=== PATIENT | female | born 1990 ===

== ENCOUNTER 2021-05-20 21:03 | Inpatient (IN) ==
[2021-05-20] MEDS ORDERED: 0.9 % Sodium Chloride 1,000 ML IVC ONE (21:34)
[2021-05-20 22:41] LABS: Amphetamine Screen,Urine Negative ng/mL (Cutoff=1000); Barbiturate Screen,Urine Negative ng/mL (Cutoff=200); Benzodiazepines Screen,Urine Negative ng/mL (Cutoff=200); Cannabinoid Screen,Urine Positive ng/mL (Cutoff = 50); Cocaine Screen,Urine Positive ng/mL (Cutoff= 300); Opiate Screen,Urine Negative ng/mL (Cutoff=300); Phencyclidine Screen,Urine Negative ng/mL (Cutoff=25)
[2021-05-21] MEDS ORDERED: Naloxone 0.4 MG/ML INJ IVP PRN (00:05)
[2021-05-21] MEDS: *HR* Heparin 5,000 UNIT/ML VIAL SQ SCH ×2 (06:07→16:22)
[2021-05-21 06:44] LABS: Hematocrit 38.2 % (35.3-44.9); Hemoglobin 12.2 g/dL (11.5-15.4); Mean Corpuscular HGB Conc 31.9 g/dL (31.6-35.5); Mean Corpuscular Hemoglobin 26.9 pg (28.0-33.3); Mean Corpuscular Volume 84.3 fL (83.0-100.0); Mean Platelet Volume 11.7 fL (9.4-12.4); Platelet Count 237 K/mcL (140-400); Red Blood Count 4.53 M/mcL (3.82-4.97); Red Cell Distribution Width 12.7 % (11.5-14.5); White Blood Count 6.8 K/mcL (4.3-11.1)
[2021-05-21 07:06] LABS: BUN/Creatinine Ratio 18 (6-26); Blood Urea Nitrogen 14 mg/dL (6-20); Calcium 8.8 mg/dL (8.6-10.3); Carbon Dioxide 23 mEq/L (23-29); Chloride 109 mEq/L (98-107); Glucose 88 mg/dL (70-105); Osmolality,Calculated 288 (280-300); Potassium 3.5 mEq/L (3.5-5.1); Sodium 139 mEq/L (136-145); eGFR For African Americans > 60 (> 60); eGFR For Non-African Americans > 60 (> 60)
[2021-05-21] MEDS: Ondansetron 4 MG/2 ML VIAL IVP PRN ×2 (08:57→16:52)
[2021-05-21] MEDS: *HR* LORazepam 2 MG/ML VIAL IVP PRN ×2 (16:24→21:16)
[2021-05-22] MEDS: *HR* LORazepam 2 MG/ML VIAL IVP PRN (02:52)
[2021-05-22] MEDS: Ondansetron 4 MG/2 ML VIAL IVP PRN ×2 (02:53→08:47)
[2021-05-22] MEDS ORDERED: Acetaminophen 325 MG TABLET PO PRN (03:03)
[2021-05-22 03:16] LABS: Candida DNA Not Detected (Not Detect); Gardnerella DNA DETECTED (Not Detect); Trichomonas DNA DETECTED (Not Detect)
[2021-05-22] MEDS: *HR* Heparin 5,000 UNIT/ML VIAL SQ SCH ×2 (05:33→18:55)
[2021-05-22] MEDS ORDERED: Azithromycin 250 MG TABLET PO ONE (06:38)
[2021-05-22] MEDS ORDERED: cefTRIAXone 1,000 MG in Water for inj. (sterile) 10 ML IVP ONE ×3 (06:38→15:55)
[2021-05-22] MEDS ORDERED: CefTRIAXone 1,000 MG VIAL ONE (07:03)
[2021-05-22] MEDS ORDERED: Metoclopramide 10 MG/2 ML VIAL IVP PRN (09:26)
[2021-05-22] MEDS ORDERED: Ringers Solution, Lactated 1,000 ML IVC SCH (09:30)
[2021-05-22] MEDS ORDERED: *HR* Promethazine 25 MG/ML VIAL IM STA (11:02)
[2021-05-22] MEDS: Ondansetron 4 MG/2 ML VIAL IVP SCH ×3 (11:18→21:35)
[2021-05-22] MEDS: metroNIDAZOLE 500 MG TABLET PO SCH ×3 (11:19→23:11)
[2021-05-22] MEDS ORDERED: *HR* LORazepam 2 MG/ML VIAL IM STA (12:01)
[2021-05-22] MEDS ORDERED: Prochlorperazine 10 MG/2 ML VIAL IM PRN (12:08)
[2021-05-22 22:00] LABS: Bilirubin,Urine Negative (Negative); Blood,Urine Negative (Negative); Clarity,Urine Clear (Clear); Color,Urine Yellow (Yellow); Glucose,Urine (UA) Normal (Normal); Ketones,Urine Negative (Negative); Leukocyte Esterase,Urine Large (Negative); Mucus,Urine Few per lpf (None-Few); Nitrite,Urine Negative (Negative); Protein,Urine 30 mg/dL (Neg-Trace); Squamous Epithelial Cell,Urine Few per hpf (None-Few); Urobilinogen,Urine Normal (Normal); WBC,Urine 30-50 per hpf (0-3)
[2021-05-23] MEDS: Metoclopramide 10 MG/2 ML VIAL IVP PRN ×2 (00:57→08:21)
[2021-05-23] MEDS: Ondansetron 4 MG/2 ML VIAL IVP SCH ×3 (04:08→12:48)
[2021-05-23 04:23] LABS: BUN/Creatinine Ratio 15 (6-26); Blood Urea Nitrogen 12 mg/dL (6-20); Calcium 9.5 mg/dL (8.6-10.3); Carbon Dioxide 22 mEq/L (23-29); Chloride 103 mEq/L (98-107); Glucose 101 mg/dL (70-105); Magnesium 1.6 mg/dL (1.6-2.6); Osmolality,Calculated 284 (280-300); Phosphorous 2.9 mg/dL (2.7-4.5); Potassium 3.4 mEq/L (3.5-5.1); Sodium 137 mEq/L (136-145); eGFR For African Americans > 60 (> 60); eGFR For Non-African Americans > 60 (> 60)
[2021-05-23] MEDS: *HR* Heparin 5,000 UNIT/ML VIAL SQ SCH (05:30)
[2021-05-23] MEDS: metroNIDAZOLE 500 MG TABLET PO SCH (08:19)
[2021-05-23] MEDS: *HR* LORazepam 2 MG/ML VIAL IVP PRN (08:20)
[2021-05-23 16:08] VITALS: BP 127/85; PULSE 57; TEMP 99.2; O2SAT 99
== END 2021-05-23 17:30 | DRG 817 ==
LOC: 2ANU 21:03 → EMEROOARM 21:03 → SUATTDRO 23:58 → 2ANU 05-21 00:41
PROVIDERS: ADMIT Internal Medicine; ATTEND Internal Medicine